=== PATIENT | male | born 1985 | race Caucasian/White ===

== ENCOUNTER 2020-12-05 08:38 | Emergency (ER) | payer MEDICAID ==
[~2020-12-05] VITALS: Ht 188 cm; Wt 88.0 kg
[2020-12-05] MEDS ORDERED: LORAZEPAM 2MG/ML CPJ IV ONE (09:00)
[2020-12-05] MEDS ORDERED: SODIUM CHLORIDE 0.9% 1,000 ML IV ONE (09:00)
[2020-12-05] MEDS ORDERED: FOLIC ACID 1 MG, THIAMINE HCL 100 MG, MVI, ADULT NO.1 10 ML in DEXTROSE 5% WATER 1,000 ML IV ONE (09:15)
[2020-12-05 09:23] LABS: BASOPHILS % 0.5 % (0.0-2.0); EOSINOPHILS % 0.8 % (0.0-5.0); HEMATOCRIT. 41.9 % (42.0-52.0); HEMOGLOBIN. 14.3 g/dL (14.0-18.0); LYMPHOCYTES % 16.2 % (20.0-50.0); MEAN CORPUSCULAR HEMOGLOBIN 30.4 pg (28.0-32.0); MEAN CORPUSCULAR VOLUME 88.7 fL (80.0-94.0); MEAN PLATELET VOLUME 6.2 fl (7.4-10.4); MONOCYTES % 10.1 % (2.0-8.0); NEUTROPHILS % 72.4 % (40.0-76.0); PLATELET 341 x1000/uL (130-400); RED BLOOD CELL COUNT 4.73 mill/uL (4.7-6.1); RED CELL DISTRIBUTION WIDTH 14.1 % (11.6-14.6)
[2020-12-05 09:27] LABS: CHLORIDE 98 mEq/L (98-107)
[2020-12-05 09:31] LABS: ETHANOL BLOOD 13 mg/dL
[2020-12-05 09:39] LABS: *AMPHETAMINES SCREEN URINE PRESUMTIVE POSITIVE (NEGATIVE); *BARBITURATES SCREEN URINE NEGATIVE (NEGATIVE); *BENZODIAZEPINES SCREEN URINE NEGATIVE (NEGATIVE); *COCAINE SCREEN URINE NEGATIVE (NEGATIVE); CANNABINOID URINE SCREEN PRESUMTIVE POSITIVE (NEGATIVE); METHADONE URINE SCREEN NEGATIVE (NEGATIVE); OPIATES URINE SCREEN NEGATIVE (NEGATIVE); PHENCYCLIDINE URINE SCREEN NEGATIVE (NEGATIVE)
[2020-12-05] MEDS ORDERED: LORA-249 MT (11:39)
[2020-12-05 13:51] VITALS: BP 137/81
== END 2020-12-05 14:41 | disposition home or self-care (01) ==
LOC: ER 08:38
DX: F10.239 Alcohol dependence with withdrawal, unspecified (principal); F15.129 Other stimulant abuse with intoxication, unspecified; I49.9 Cardiac arrhythmia, unspecified; Y90.0 Blood alcohol level of less than 20 mg/100 ml
CPT/HCPCS: 36415; 71045; 80053; 80305; 80320; 83735; 85025; 93005; 96361; 96365; 96366; 96375; 99285; J2060; J3411; J3490; J7030; J7070; Z7610; G0480

== ENCOUNTER 2024-01-22 13:45 | Emergency (ER) | payer MEDICAID ==
[~2024-01-22] VITALS: Ht 188 cm; Wt 68.0 kg
[~2024-01-22 13:45] MED LIST: LORA-249 MT
[2024-01-22 13:56] VITALS: BP 133/88; PULSE 92; RESP 18; TEMP 98.5; O2SAT 96
[2024-01-22] MEDS ORDERED: BO1 TP (14:33)
[2024-01-22] MEDS ORDERED: AMOX1TAB16 MT (14:33)
[2024-01-22] MEDS: TETANUS, DIPHTHERIA, PERTUSSIS VAC/PF 0.5ML (>10YR OLD) IM ONE (15:03)
[2024-01-22] MEDS: BACITRACIN ZINC OINT UDPKT TOP ONE (15:04)
== END 2024-01-22 15:24 | disposition home or self-care (01) ==
LOC: ER 13:45
DX: S68.521A Partial traumatic transphalangeal amputation of right thumb, initial encounter (principal); W26.0XXA Contact with knife, initial encounter; Y93.89 Activity, other specified; Y92.89 Other specified places as the place of occurrence of the external cause; Y99.8 Other external cause status
CPT/HCPCS: 73140; 90715; 90471; 99283; Z7610